=== PATIENT | male | born 1955 | race Caucasian/White ===

== ENCOUNTER → 2018-06-17 11:40 | Outpatient (CLI) | payer OTHER, SELFPAY ==
--- NOTE | 2018-06-17 | DI.MRI.S_ITS ---
PROCEDURE: MR LUMBAR SPINE WO CON INDICATIONS: NERVE ROOT COMPRESSION TECHNIQUE: Noncontrast sagittal T1 spin echo and T2 fast echo, sagittal STIR, axial T2 fast spin echo through the lumbar spine. Patient could not complete the examination. COMPARISON: None. FINDINGS: Image quality: Partially degraded by motion artifact, as the patient was unable to maintain a stationary position during the examination. Alignment and Curvature: No plain films are available for comparison, for numbering purposes. Thus, for the purposes of this examination, 5 lumbar type vertebral bodies will be presumed, as denoted on the montage panel. This should be confirmed and correlated with plain films, prior to any lumbar spinal intervention. There is loss of normal lumbar lordosis. There is mild grade 1 retrolisthesis of L1 on L2, L2 on L3, L3 on L4, L4-L5, and L5 on S1. Bone Marrow: Marrow is of normal overall signal. No acute vertebral body compression fractures. Mild reactive signal within the endplates adjacent to the L1-L2, L2-L3, L3-L4, L4-L5, and L5-S1 intervertebral discs. Spinal Cord: Conus medullaris terminates at the lower L1 level. Visualized cord demonstrates normal signal and size. Paraspinous Soft Tissues: No paravertebral masses. L1-L2: Congenital canal stenosis. Moderate disc height loss and desiccation. Moderate diffuse disc bulge. Mild epidural lipomatosis. Mild facet hypertrophy. Moderate canal stenosis. Mild foraminal stenosis bilaterally. L2-L3: Congenital canal stenosis. Moderate disc height loss and desiccation. Moderate diffuse disc bulge. Mild facet hypertrophy. Mild epidural lipomatosis. Moderate canal stenosis. Moderate subarticular left and mild subarticular right foraminal stenosis. L3-L4: Congenital canal stenosis. Moderate disc height loss and desiccation. Moderate diffuse disc bulge. Mild facet and ligamentum flavum hypertrophy. Mild epidural lipomatosis. Severe canal stenosis. Severe subarticular left and moderate subarticular right foraminal stenosis. Mild flattening deformity of the left L3 nerve root within the neural foramen. L4-L5: Congenital canal stenosis. Moderate disc height loss and desiccation. Moderate diffuse disc bulge. Mild bilateral facet and ligamentum hypertrophy. Moderate epidural lipomatosis. Severe canal stenosis. Moderate subarticular left and mild subarticular right foraminal stenosis. L5-S1: Congenital canal stenosis. Moderate disc height loss and desiccation. Mild diffuse disc bulge, with superimposed small left paracentral disc extrusion, which extends inferiorly within the left anterior epidural space, measuring 17 mm craniocaudal by 7 mm anteroposterior by 7 mm transverse. This disc extrusion contacts the left S1 nerve root, but does not appear to compress it, nor deviate it. Moderate facet hypertrophy bilaterally. Mild epidural lipomatosis. Moderate canal stenosis. Moderate to severe right subarticular foraminal stenosis. Moderate subarticular left foraminal stenosis. Possible mild flattening deformity of the right L5 nerve root within the neural foramen. IMPRESSION: 1. Limited examination secondary to patient's inability to complete examination. 2. Diffuse congenital canal stenosis with superimposed multilevel degenerative disc and facet disease, as well as ligamentum flavum hypertrophy and epidural lipomatosis. 3. Multilevel canal stenoses, worst at L3-L4 and L4-L5, where there are severe canal stenoses present. Moderate canal stenoses at the remaining levels as described above. 4. Multilevel foraminal stenoses, worst at L3-L4 on the left, and at L5-S1 on the right, where there is associated neural flattening. 5. L5-S1 disc extrusion abuts, but does not compress nor deviate the left S1 nerve root. 6. Recommend correlation with clinical symptoms to ascertain relevance of these findings. Dictated by: Ruma Lundberg M.D. on 06/17/2018 at 13:54 Approved by: Ruma Lundberg M.D. on 06/17/2018 at 14:02
== END ==
PROVIDERS: PCP Family Medicine
DX: M51.16 Intervertebral disc disorders with radiculopathy, lumbar region (principal); M51.17 Intervertebral disc disorders with radiculopathy, lumbosacral region; M48.061 Spinal stenosis, lumbar region without neurogenic claudication; M48.07 Spinal stenosis, lumbosacral region
CPT/HCPCS: 72148

== ENCOUNTER → 2019-07-02 09:39 | Outpatient (CLI) | payer MEDICARE, SELFPAY ==
--- NOTE | 2019-07-02 | DI.NM.S_ITS ---
PROCEDURE: NM BONE SCAN WHOLE BODY RADIOPHARMACEUTICAL: 20.1 mCi Tc-99m MDP IV. INDICATIONS: Prostate Cancer TECHNIQUE: Delayed whole-body scintigrams were obtained approximately 3-4 hours after intravenous injection of radiotracer. Anterior and posterior views were acquired from vertex to feet. Additional left and right oblique views of the thoracic cage were obtained. COMPARISON: [facility], MR, MR LUMBAR SPINE WO CON, 06/17/2018, 11:58. [facility], CT, CT CHEST ABD PEL W CON, 07/02/2019, 11:02. FINDINGS: There is increased activity in the left L2-L3 area, correlating with severe degenerative change and a large osteophyte seen on CT. Increased activity is noted in the lateral aspect of the right 10th rib, correlating with old fracture. Increased uptake is seen in the medial head of the left clavicle, correlating with an old fracture. There are foci increased uptake in cervical, thoracic and lumbar spine with distribution indistinguishable from degenerative disc and facet disease; early metastasis to spine could be obscured by degenerative changes. There are foci of increased periarticular activity involving shoulders, sternoclavicular joints, right wrist, hips, right knee and left ankle, consistent with degenerative/arthritic changes. IMPRESSION: 1. No definitive scintigraphic findings for osseous metastasis. 2. Increased uptake in the lumbar spine at L2-L3 correlates with severe degenerative disc disease and a large disc-osteophyte complex. 3. Old right 10th rib fracture and left medial clavicular head fracture. Dictated by: Mercedes Andrews M.D. on 07/02/2019 at 14:25 Approved by: Mercedes Andrews M.D. on 07/02/2019 at 18:28
--- NOTE | 2019-07-02 | DI.CT.S_ITS ---
PROCEDURE: CT CHEST ABD PEL W CON INDICATIONS: PROSTATE CANCER TECHNIQUE: After the administration of oral and intravenous contrast, 5 mm thick sections acquired from the lung apices to the symphysis. 5 mm coronal and sagittal reformats were performed, with additional 7 mm coronal MIP reformats through the lungs. For radiation dose reduction, the following was used: automated exposure control, adjustment of mA and/or kV according to patient size. COMPARISON: [facility], [place], [place] BONE SCAN WHOLE BODY, 07/02/2019, 13:00. FINDINGS: Image quality: Excellent. CHEST: Lungs and pleura: No acute airspace opacities. Large lung volumes, pulmonary hyperexpansion to the degree that COPD is suspected. No pleural effusions or pneumothorax. The medial left clavicular distortion present appears to represent a long-standing nonunion fracture or a congenital variant with secondary degenerative change prominent in that area as a result. Central and peripheral airways appear patent and normal in caliber. Mediastinum: Heart size is normal. No pericardial effusion. No mediastinal or hilar adenopathy by size criteria. Thoracic aorta and central pulmonary arteries are normal in size. Esophagus is normal in caliber. No hiatal hernia. Chest wall: No axillary or supraclavicular adenopathy by size criteria. Thyroid gland appears normal where well seen. No osteolytic or blastic bone lesions. ABDOMEN: Solid organs: Liver is normal in size and enhancement. Gallbladder appears normal. Biliary system is non dilated. Pancreas enhances normally except for a 6 x 7 mm hypodensity at the junction of the pancreatic head and uncinate process near the superior mesenteric vein course, seen on series 2 image 69. Spleen is normal in size and enhancement. No adrenal nodules. Kidneys demonstrate normal size and enhancement, without hydronephrosis. Peritoneum and bowel: Bowel loops demonstrate normal wall thickness and caliber. No free fluid or air. Nodes and vessels: No retroperitoneal or mesenteric adenopathy by size criteria. Aorta and inferior vena cava are normal in size. Miscellaneous: No ventral hernias. Along the visualized osseous elements of the abdomen no osteolytic or blastic bone lesion is seen that would indicate likelihood of metastatic disease from prostate carcinoma. PELVIS: Genitourinary: Bladder wall thickness is normal. Miscellaneous: No inguinal hernias or adenopathy. No osteolytic or blastic bone lesions are found. Bones: No suspicious bony lesions. No vertebral body compression fractures. IMPRESSION: Through the chest, abdomen and pelvis no metastatic disease related to prostate carcinoma is suspected. Within the chest there is evidence of pulmonary hyperexpansion and likelihood of COPD. 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 Within the abdomen there is a 6 x 7 mm hypodensity involving the interface between the uncinate process and the pancreatic head near the adjacent course of the superior mesenteric vein, indeterminate in origin and worthy of followup attention on subsequent CT scanning that includes this area. It is possible that this represents a sidebranch intraductal papillary mucinous neoplasm but other entities within the pancreatic parenchyma can produce such an appearance. Within the pelvis no lesion is seen that would indicate prostate carcinoma extending directly from the gland into adjacent structures, or presence of adenopathy or osteolytic/blastic bone lesions indicative of osseous metastatic disease. Dictated by: Shoaib Daley M.D. on 07/02/2019 at 14:55 Approved by: Shoaib Daley M.D. on 07/02/2019 at 15:05
[2019-07-02 10:50] LABS: BUN Creatinine Ratio 17.7 (6-22); Blood Urea Nitrogen 23 mg/dL (9-20); Estimated Glomerular Filt Rate 55.2 mL/min (>60)
== END ==
PROVIDERS: PCP Family Medicine; Visit Provider Urology
DX: C61 Malignant neoplasm of prostate (principal); R31.0 Gross hematuria; M51.36 Other intervertebral disc degeneration, lumbar region
CPT/HCPCS: 36415; 71260; 74177; 78306; 82565; 84520; A9503; Q9967

== ENCOUNTER → 2019-08-04 12:57 | Outpatient (CLI) | payer MEDICARE, SELFPAY ==
--- NOTE | 2019-08-04 13:52 | DI.CT.S_ITS ---
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 5 mm coronal and sagittal reformats were performed. For radiation dose reduction, the following was used: automated exposure control, adjustment of mA and/or kV according to patient size. COMPARISON: [facility], CT, CT CHEST ABD PEL W CON, 07/02/2019, 11:02. FINDINGS: Image quality: Excellent. Lung bases: Lung bases are clear. Heart size is normal. Solid organs: Liver is normal in size and enhancement. Gallbladder partially contracted. Biliary system is non dilated. There is grossly unchanged appearance of a 7 mm hypodense focus seen in the head of the pancreas since the prior study dated 07/02/19. No definite communication with the main pancreatic duct is seen. This closely abuts the superior mesenteric vein which appears patent. The superior mesenteric artery appears patent. No mesenteric lymphadenopathy is identified. Spleen is normal in size and enhancement. No adrenal nodules. Kidneys demonstrate normal size and enhancement, without hydronephrosis. Peritoneum and bowel: Bowel loops demonstrate normal wall thickness and caliber. No free fluid or air. Prior right rib fracture Nodes and vessels: No retroperitoneal or mesenteric adenopathy by size criteria. Aorta and inferior vena cava are normal in size. Miscellaneous: No ventral hernias. IMPRESSION: Grossly unchanged appearance of hypodense, possibly cystic, pancreatic head lesion since 07/02/19 however longer interval followup is necessary and this finding still technically indeterminate. Recommend one year followup with CT or MRI. No lymphadenopathy. Dictated by: Edy Painting M.D. on 08/04/2019 at 18:05 Approved by: Edy Painting M.D. on 08/04/2019 at 18:11
== END ==
PROVIDERS: PCP Family Medicine; Visit Provider Physician Assistant Medical
DX: D37.8 Neoplasm of uncertain behavior of other specified digestive organs (principal)
CPT/HCPCS: 74160; Q9967

== ENCOUNTER → 2020-10-18 11:35 | Outpatient (CLI) | payer MEDICARE, SELFPAY ==
[2020-10-18 20:43] LABS: Prostate Specific Antigen < 0.064 ng/mL (0.10-4.00)
== END ==
PROVIDERS: PCP Family Medicine; Visit Provider Radiology Radiation Oncology
DX: C61 Malignant neoplasm of prostate (principal)
CPT/HCPCS: 84153

== ENCOUNTER → 2021-04-24 13:27 | Outpatient (CLI) | payer MEDICARE, SELFPAY ==
[2021-04-24 19:37] LABS: Prostate Specific Antigen < 0.064 ng/mL (0.10-4.00)
== END ==
PROVIDERS: PCP Family Medicine; Visit Provider Radiology Radiation Oncology
DX: C61 Malignant neoplasm of prostate (principal)
CPT/HCPCS: 84153

== ENCOUNTER → 2021-08-22 10:21 | Outpatient (CLI) | payer MEDICARE, SELFPAY ==
[2021-08-22 18:25] LABS: Add Manual Diff / Slide Review NO; Basophils Absolute Auto 0 /uL (0-100); Basophils Percent Auto 0.7 % (0-2); Eosinophils Absolute Auto 100 /uL (0-450); Eosinophils Percent Auto 1.5 % (2-4); Hematocrit 42.8 % (41-53); Hemoglobin 14.7 g/dL (13.5-17.5); Lymphocytes Absolute Auto 1100 /uL (1100-4500); Lymphocytes Percent Auto 15.1 % (25-40); Mean Corpuscular HGB Conc 34.4 % (30-36); Mean Corpuscular Hemoglobin 31.5 PG (26-34); Mean Corpuscular Volume 91.7 fL (80-100); Monocytes Absolute Auto 800 /uL (0-900); Monocytes Percent Auto 10.9 % (3-14); Neutrophils Absolute Auto 5100 /uL (1500-7000); Neutrophils Percent Auto 71.8 % (50-75); Platelet Count 263 X10^3/uL (150-400); Red Blood Cell Count 4.67 X10^6/uL (4.5-5.9); Red Cell Distribution Width 13.6 % (11.6-14.8); White Blood Cell Count 7.2 X10^3/uL (4.5-11.0)
[2021-08-22 18:56] LABS: Hemoglobin A1C% w Est Avg Glu 5.7 % (4.0-6.0)
[2021-08-22 19:02] LABS: Alanine Aminotransferase 16 IU/L (<50); Albumin 4.6 g/dL (3.5-5.0); Albumin Globulin Ratio 1.7 (1.0-2.8); Alkaline Phosphatase 76 U/L (38-126); Aspartate Aminotransferase 28 IU/L (17-59); BUN Creatinine Ratio 22.9 (6-22); Bilirubin Total 0.9 mg/dL (0.2-1.3); Blood Urea Nitrogen 24 mg/dL (9-20); Calcium 9.6 mg/dL (8.4-10.2); Carbon Dioxide 25 mmol/L (22-32); Chloride 106 mmol/L (98-107); Cholesterol 169 mg/dL (140-199); Estimated Glomerular Filt Rate > 60.0 mL/min (>60); Globulin 2.7 g/dL (1.7-4.1); Glucose 99 mg/dL (80-110); HDL Cholesterol 57 mg/dL (40-60); HEMOLYSIS < 15 (0-50); LDL Cholesterol Calculated 71 mg/dL (<100); Potassium 4.3 mmol/L (3.4-5.1); Sodium 139 mmol/L (137-145); Total Protein 7.3 g/dL (6.3-8.2); Triglycerides 203 mg/dL (35-150)
[2021-08-22 19:14] LABS: Free T4, Direct Thyroxine 1.43 ng/dL (0.78-2.19)
[2021-08-22 19:28] LABS: Thyroid Stimulating Hormone 0.396 uIU/mL (0.47-4.68)
== END ==
PROVIDERS: PCP Family Medicine; Visit Provider Physician Assistant
DX: G56.03 Carpal tunnel syndrome, bilateral upper limbs (principal); R93.3 Abnormal findings on diagnostic imaging of other parts of digestive tract; Z13.1 Encounter for screening for diabetes mellitus; E03.9 Hypothyroidism, unspecified; R53.83 Other fatigue; R03.0 Elevated blood-pressure reading, without diagnosis of hypertension
CPT/HCPCS: 80053; 80061; 83036; 84439; 84443; 85025

== ENCOUNTER → 2022-01-24 09:18 | Outpatient (CLI) | payer MEDICARE, SELFPAY ==
[2022-01-24 20:49] LABS: Free T4, Direct Thyroxine 1.03 ng/dL (0.78-2.19)
[2022-01-24 21:03] LABS: TSH w/ Reflex to FT4 0.97 uIU/mL (0.47-4.68)
== END ==
PROVIDERS: PCP Physician Assistant; Visit Provider Physician Assistant
DX: E03.9 Hypothyroidism, unspecified (principal); G56.03 Carpal tunnel syndrome, bilateral upper limbs
CPT/HCPCS: 84439; 84443

== ENCOUNTER → 2022-07-21 09:07 | Outpatient (CLI) | payer MEDICARE, SELFPAY ==
[2022-07-21 09:38] LABS: Add Manual Diff / Slide Review NO; Basophils Absolute Auto 0 /uL (0-100); Basophils Percent Auto 0.8 % (0-2); Eosinophils Absolute Auto 200 /uL (0-450); Eosinophils Percent Auto 2.8 % (2-4); Hematocrit 39.9 % (41-53); Hemoglobin 13.5 g/dL (13.5-17.5); Lymphocytes Absolute Auto 1000 /uL (1100-4500); Mean Corpuscular HGB Conc 33.9 % (30-36); Mean Corpuscular Hemoglobin 31.6 PG (26-34); Mean Corpuscular Volume 93.3 fL (80-100); Monocytes Absolute Auto 500 /uL (0-900); Monocytes Percent Auto 8.5 % (3-14); Neutrophils Absolute Auto 4400 /uL (1500-7000); Neutrophils Percent Auto 71.9 % (50-75); Platelet Count 235 X10^3/uL (150-400); Red Blood Cell Count 4.28 X10^6/uL (4.5-5.9); Red Cell Distribution Width 13.6 % (11.6-14.8); White Blood Cell Count 6.2 X10^3/uL (4.5-11.0)
[2022-07-21 09:51] LABS: Alanine Aminotransferase 16 IU/L (<50); Alkaline Phosphatase 61 U/L (38-126); Aspartate Aminotransferase 26 IU/L (17-59); BUN Creatinine Ratio 20.2 (6-22); Bilirubin Total 0.3 mg/dL (0.2-1.3); Blood Urea Nitrogen 19 mg/dL (9-20); Calcium 9.1 mg/dL (8.4-10.2); Carbon Dioxide 23 mmol/L (22-32); Chloride 103 mmol/L (98-107); Estimated Glomerular Filt Rate > 60 mL/min (>60); Glucose 104 mg/dL (80-110); Lipase 136 U/L (23-300); Potassium 4.8 mmol/L (3.4-5.1); Sodium 137 mmol/L (137-145); Total Protein 6.7 g/dL (6.3-8.2)
[2022-07-21 10:22] LABS: TSH w/ Reflex to FT4 1.16 uIU/mL (0.47-4.68)
[2022-07-21 10:23] LABS: Prostate Specific Antigen Scrn < 0.064 ng/mL (0.1-4.0)
[2022-07-27 15:19] LABS: Albumin 3.9 g/dL (3.5-5.0); Albumin Globulin Ratio 1.4 (1.0-2.8); Globulin 2.8 g/dL (1.7-4.1); HEMOLYSIS 35 (0-50)
== END ==
PROVIDERS: PCP Physician Assistant; Referring Provider Physician Assistant; Visit Provider Physician Assistant
DX: Z12.5 Encounter for screening for malignant neoplasm of prostate; E03.9 Hypothyroidism, unspecified; F41.9 Anxiety disorder, unspecified; R10.33 Periumbilical pain; Z85.46 Personal history of malignant neoplasm of prostate
CPT/HCPCS: 36415; 80053; 83690; 84443; 85025; G0103

== ENCOUNTER → 2023-05-16 09:03 | Outpatient (CLI) | payer MEDICARE, SELFPAY ==
[2023-05-16 20:05] LABS: Alanine Aminotransferase 17 IU/L (<50); Albumin 3.8 g/dL (3.5-5.0); Albumin Globulin Ratio 1.5 (1.0-2.8); Alkaline Phosphatase 60 U/L (38-126); Aspartate Aminotransferase 27 IU/L (17-59); BUN Creatinine Ratio 20.8 (6-22); Bilirubin Total 0.7 mg/dL (0.2-1.3); Blood Urea Nitrogen 22 mg/dL (9-20); Calcium 9.4 mg/dL (8.4-10.2); Carbon Dioxide 27 mmol/L (22-32); Chloride 104 mmol/L (98-107); Cholesterol 178 mg/dL (140-199); Estimated Glomerular Filt Rate > 60 mL/min (>60); Globulin 2.5 g/dL (1.7-4.1); Glucose 105 mg/dL (80-110); HDL Cholesterol 62 mg/dL (40-60); HEMOLYSIS < 15 (0-50); LDL Cholesterol Calculated 78 mg/dL (<100); Potassium 4.6 mmol/L (3.4-5.1); Sodium 137 mmol/L (137-145); Total Protein 6.3 g/dL (6.3-8.2); Triglycerides 189 mg/dL (35-150)
[2023-05-16 20:08] LABS: Add Manual Diff / Slide Review NO; Basophils Absolute Auto 0 /uL (0-100); Basophils Percent Auto 0.8 % (0-2); Eosinophils Absolute Auto 200 /uL (0-450); Eosinophils Percent Auto 4.2 % (2-4); Hematocrit 41.1 % (41-53); Hemoglobin 14.3 g/dL (13.5-17.5); Lymphocytes Absolute Auto 1300 /uL (1100-4500); Lymphocytes Percent Auto 24.5 % (25-40); Mean Corpuscular HGB Conc 34.9 % (30-36); Mean Corpuscular Hemoglobin 32.9 PG (26-34); Mean Corpuscular Volume 94.3 fL (80-100); Monocytes Absolute Auto 600 /uL (0-900); Neutrophils Absolute Auto 3100 /uL (1500-7000); Neutrophils Percent Auto 59.5 % (50-75); Platelet Count 235 X10^3/uL (150-400); Red Blood Cell Count 4.36 X10^6/uL (4.5-5.9); Red Cell Distribution Width 13.9 % (11.6-14.8); White Blood Cell Count 5.2 X10^3/uL (4.5-11.0)
[2023-05-16 20:34] LABS: Prostate Specific Antigen Scrn < 0.064 ng/mL (0.1-4.0)
[2023-05-16 20:50] LABS: Vitamin B12 337 pg/mL (239-931)
== END ==
PROVIDERS: PCP Physician Assistant; Visit Provider Physician Assistant
DX: Z13.6 Encounter for screening for cardiovascular disorders (principal); Z79.899 Other long term (current) drug therapy; Z12.5 Encounter for screening for malignant neoplasm of prostate; R53.83 Other fatigue; Z85.46 Personal history of malignant neoplasm of prostate; G56.03 Carpal tunnel syndrome, bilateral upper limbs; G25.81 Restless legs syndrome
CPT/HCPCS: 80053; 80061; 82607; 85025; G0103

== ENCOUNTER → 2023-05-20 09:54 | Outpatient (CLI) | payer MEDICARE, SELFPAY ==
[2023-05-20 20:04] LABS: TSH w/ Reflex to FT4 0.92 uIU/mL (0.47-4.68)
== END ==
PROVIDERS: PCP Physician Assistant; Visit Provider Physician Assistant
DX: E03.9 Hypothyroidism, unspecified (principal)
CPT/HCPCS: 84443

== ENCOUNTER → 2024-06-30 08:05 | Outpatient (CLI) | payer MEDICARE, SELFPAY ==
[2024-06-30 14:33] LABS: Add Manual Diff / Slide Review NO; Basophils Absolute Auto 100 /uL (0-100); Basophils Percent Auto 1.6 % (0-2); Eosinophils Absolute Auto 100 /uL (0-450); Eosinophils Percent Auto 1.4 % (2-4); Hematocrit 43.8 % (41-53); Hemoglobin 14.6 g/dL (13.5-17.5); Lymphocytes Absolute Auto 1200 /uL (1100-4500); Lymphocytes Percent Auto 19.4 % (25-40); Mean Corpuscular HGB Conc 33.4 % (30-36); Mean Corpuscular Hemoglobin 32.5 PG (26-34); Mean Corpuscular Volume 97.5 fL (80-100); Monocytes Absolute Auto 600 /uL (0-900); Monocytes Percent Auto 9.5 % (3-14); Neutrophils Absolute Auto 4200 /uL (1500-7000); Neutrophils Percent Auto 68.1 % (50-75); Platelet Count 258 X10^3/uL (150-400); Red Blood Cell Count 4.49 X10^6/uL (4.5-5.9); Red Cell Distribution Width 14.1 % (11.6-14.8); White Blood Cell Count 6.2 X10^3/uL (4.5-11.0)
[2024-06-30 14:52] LABS: Alanine Aminotransferase 21 IU/L (<50); Albumin 4.2 g/dL (3.5-5.0); Albumin Globulin Ratio 1.8 (1.0-2.8); Alkaline Phosphatase 69 U/L (38-126); Aspartate Aminotransferase 34 IU/L (17-59); Bilirubin Total 1.1 mg/dL (0.2-1.3); Blood Urea Nitrogen 24 mg/dL (9-20); Calcium 9.5 mg/dL (8.4-10.2); Carbon Dioxide 22 mmol/L (22-32); Chloride 106 mmol/L (98-107); Cholesterol 180 mg/dL (140-199); Estimated Glomerular Filt Rate > 60 mL/min (>60); Globulin 2.3 g/dL (1.7-4.1); Glucose 106 mg/dL (80-110); HDL Cholesterol 83 mg/dL (40-60); HEMOLYSIS < 15 (0-50); LDL Cholesterol Calculated 59 mg/dL (<100); Potassium 4.1 mmol/L (3.4-5.1); Sodium 137 mmol/L (137-145); Total Protein 6.5 g/dL (6.3-8.2); Triglycerides 188 mg/dL (35-150)
[2024-06-30 15:20] LABS: Prostate Specific Antigen Scrn < 0.064 ng/mL (0.1-4.0); TSH w/ Reflex to FT4 1.31 uIU/mL (0.47-4.68)
[2024-07-02 15:37] LABS: Hep C Virus Ab w/Reflex Quant NEGATIVE s/c (NEGATIVE)
== END ==
PROVIDERS: PCP Physician Assistant; Visit Provider Physician Assistant
DX: E78.1 Pure hyperglyceridemia (principal); Z12.5 Encounter for screening for malignant neoplasm of prostate; D64.9 Anemia, unspecified; E03.9 Hypothyroidism, unspecified; Z12.11 Encounter for screening for malignant neoplasm of colon; Z11.59 Encounter for screening for other viral diseases; Z85.038 Personal history of other malignant neoplasm of large intestine; Z79.899 Other long term (current) drug therapy
CPT/HCPCS: 80053; 80061; 84443; 85025; 86803; G0103